=== PATIENT | female | born 1975 | race Caucasian/White ===

== ENCOUNTER 2020-11-03 14:40 | Emergency (ER) | payer OTHER ==
[2020-11-03 15:07] VITALS: BP 90/53; PULSE 67; TEMP 98.1; BMI 27.3
[2020-11-03] MEDS ORDERED: ACETAMINOPHEN 500 MG TABLET (FP) PO ONE (15:37)
[2020-11-03 16:28] LABS: BASO % 0.5 % (0-2.0); EOS % 2.2 % (0-4.5); HEMATOCRIT 35.7 % (32.4-45.2); HEMOGLOBIN 12.1 GM/dL (10.7-15.3); LYMPH % 17.2 % (8-40); MCH 31.6 pg (25.7-33.7); MCHC 33.8 g/dl (32.0-36.0); MEAN CELL VOLUME 93.6 fl (80-96); MEAN PLT VOLUME 8.1 fl (7.5-11.1); NEUT % 73.1 % (42.8-82.8); PLATELET COUNT 241 10^3/uL (134-434); RBC 3.82 M/mm3 (3.60-5.2); WHITE BLOOD COUNT 8.4 K/mm3 (4.0-10.0)
[2020-11-03 16:31] LABS: EPI CELLS 13 /uL (0-25.1); HYALINE CASTS 0 /uL (0-3.1); PH,URINE 6.5 (5.0-8.0); URINE APPEARANCE CLEAR; URINE BACTERIA 558 /uL (0-1359); URINE BILIRUBIN NEGATIVE (NEGATIVE); URINE COLOR YELLOW; URINE GLUCOSE (UA) NEGATIVE (NEGATIVE); URINE KETONE NEGATIVE (NEGATIVE); URINE LEUK ESTERASE 2+ (NEGATIVE); URINE NITRITE NEGATIVE (NEGATIVE); URINE PROTEIN NEGATIVE (NEGATIVE); URINE RBC 3 /uL (0-23.9); URINE WBC 13 /uL (0-25.8)
[2020-11-03] MEDS ORDERED: ACETAMINOPHEN 500 MG TABLET (FP) ONE (16:33)
[2020-11-03 16:55] LABS: CALCIUM 8.6 mg/dL (8.5-10.1)
[2020-11-03 16:56] LABS: BLOOD UREA NITROGEN 9.5 mg/dL (7-18)
[2020-11-03 16:59] LABS: CREATININE 0.5 mg/dL (0.55-1.3)
== END 2020-11-03 19:00 | disposition home or self-care (01) ==
LOC: JER 14:40
DX: O23.10 Infections of bladder in pregnancy, unspecified trimester (principal); O26.891 Other specified pregnancy related conditions, first trimester; R10.9 Unspecified abdominal pain; Z3A.13 13 weeks gestation of pregnancy
CPT/HCPCS: 36415; 76817-TC; 80048; 81003; 84702; 85025; 86850; 86900; 86901; 87086; 99284-25

== ENCOUNTER 2021-05-10 05:10 | Inpatient (IN) | payer OTHER ==
[2021-05-10 06:21] VITALS: BMI 28.7
[2021-05-10] MEDS ORDERED: DEXTROSE 5%-LACTATED RINGERS 1,000 ML IV SCH (06:45)
[2021-05-10 07:50] LABS: BASO % 0.5 % (0-2.0); HEMATOCRIT 34.6 % (32.4-45.2); HEMOGLOBIN 11.2 GM/dL (10.7-15.3); LYMPH % 19.6 % (8-40); MCH 30.4 pg (25.7-33.7); MCHC 32.3 g/dl (32.0-36.0); MEAN CELL VOLUME 94.3 fl (80-96); MEAN PLT VOLUME 8.9 fl (7.5-11.1); MONO % 10.2 % (3.8-10.2); NEUT % 68.7 % (42.8-82.8); PLATELET COUNT 252 10^3/uL (134-434); RBC 3.67 M/mm3 (3.60-5.2); RDW 15.3 % (11.6-15.6); WHITE BLOOD COUNT 7.6 K/mm3 (4.0-10.0)
[2021-05-10 07:51] LABS: INR 0.91 (0.83-1.09); PROTHROMBIN TIME (PATIENT) 10.5 SEC (9.7-13.0)
[2021-05-10 07:54] LABS: ACTIVATED PTT 25.2 SECONDS (25.2-36.5)
[2021-05-10 07:58] LABS: BLOOD UREA NITROGEN 11.2 mg/dL (7-18)
[2021-05-10 08:01] LABS: CREATININE 0.6 mg/dL (0.55-1.3)
[2021-05-10] MEDS ORDERED: OXYTOCIN 30 UNITS in 0.9% NS 30 UNIT/500 ML INFUS.BAG IVPB SCH (09:15)
[2021-05-10] MEDS ORDERED: OXYTOCIN 30 UNITS in 0.9% NS 30 UNIT/500 ML INFUS.BAG IVPB ONE (09:17)
[2021-05-10] MEDS ORDERED: OXYTOCIN 20 UNITS in 0.9% NS 20 UNIT/1,000 ML INFUS.BAG IV ONE (10:09)
[2021-05-10] MEDS ORDERED: METHYLERGONOVINE MALEATE 0.2 MG/1 ML AMP IM PRN (11:23)
[2021-05-10] MEDS ORDERED: ACETAMINOPHEN 325 MG TABLET (FP) PO PRN (11:23)
[2021-05-10] MEDS ORDERED: WITCH HAZEL 50% (TUCKS) 40 PAD/JAR PAD TP PRN (11:23)
[2021-05-10] MEDS ORDERED: BISACODYL 10 MG SUPP.RECT RC PRN (11:23)
[2021-05-10] MEDS ORDERED: BENZOCAINE 20% 57 GM BOTTLE TP PRN (11:23)
[2021-05-10] MEDS ORDERED: BENZOCAINE 28 GM HEMORRHOIDAL OINTMENT TP PRN (11:23)
[2021-05-10] MEDS ORDERED: oxyCODONE HCL 5 MG TABLET PO PRN (11:23)
[2021-05-10] MEDS ORDERED: OXYTOCIN 20 UNITS in 0.9% NS 20 UNIT/1,000 ML INFUS.BAG IV SCH (11:30)
[2021-05-10 12:22] LABS: CORD BASE EXCESS -2.7 mmol/L (0-2); CORD HCO3 25.2 mmHg (20-29); CORD PCO2 55.4 mmHg (30-78); CORD pH 7.276 (7.14-7.44)
[2021-05-10 12:26] LABS: CORD BASE EXCESS -2.7 mmol/L (0-2); CORD HCO3 23.2 mmHg (20-29); CORD pH 7.339 (7.14-7.44)
[2021-05-10] MEDS: IBUPROFEN 600 MG TABLET (FP) PO PRN (13:15)
[2021-05-11] MEDS: IBUPROFEN 600 MG TABLET (FP) PO PRN (02:51)
[2021-05-11 10:18] LABS: BASO % 0.5 % (0-2.0); EOS % 0.9 % (0-4.5); HEMATOCRIT 30.3 % (32.4-45.2); HEMOGLOBIN 9.9 GM/dL (10.7-15.3); LYMPH % 19.9 % (8-40); MCH 30.5 pg (25.7-33.7); MCHC 32.6 g/dl (32.0-36.0); MEAN CELL VOLUME 93.7 fl (80-96); MEAN PLT VOLUME 8.9 fl (7.5-11.1); MONO % 7.5 % (3.8-10.2); NEUT % 71.2 % (42.8-82.8); PLATELET COUNT 212 10^3/uL (134-434); RBC 3.24 M/mm3 (3.60-5.2); RDW 15.5 % (11.6-15.6); WHITE BLOOD COUNT 9.3 K/mm3 (4.0-10.0)
[2021-05-11] MEDS ORDERED: SENNOSIDES/DOCUSATE COMBO (SENNA PLUS) TABLET (UD) PO PRN (22:00)
[2021-05-12] MEDS: IBUPROFEN 600 MG TABLET (FP) PO PRN (09:31)
[2021-05-12 11:24] VITALS: BP 97/57; PULSE 76; TEMP 97.9
== END 2021-05-12 13:10 | disposition home or self-care (01) | DRG 560 ==
LOC: JLDR 05:10 → J3W 12:45
PROVIDERS: ADMIT Obstetrics & Gynecology; ATTEND Obstetrics & Gynecology
PROC: 10E0XZZ Delivery of Products of Conception, External Approach (ICD-10-PCS; principal; 2021-05-10)
PROC: 10907ZC Drainage of Amniotic Fluid, Therapeutic from Products of Conception, Via Natural or Artificial Opening (ICD-10-PCS; 2021-05-10)
DX: O80 Encounter for full-term uncomplicated delivery (principal); Z3A.39 39 weeks gestation of pregnancy; Z37.0 Single live birth
CPT/HCPCS: 36415; 36600; 59409; 80048; 82803; 85025; 85610; 85730; 86780; 86850; 86900; 86901; C9803; U0003; U0005